=== PATIENT | male | born 2000 | race Caucasian/White ===

== ENCOUNTER 2023-11-09 14:07 | Emergency (ER) | payer BC ==
--- NOTE | 2023-11-09 15:36 | CT ---
EXAMINATION TYPE: CT brain wo con DATE OF EXAM: 11/09/2023 COMPARISON: 07/19/2011 HISTORY: 23-year-old male Dizziness, fogginess x1mo. Lethargic, loss of appetite. No injury. TECHNIQUE: Examination was done in axial plane without intravenous contrast. Coronal and sagittal r econstructions performed. CT DLP: 1122.4 mGycm Automated exposure control for dose reduction was used. FINDINGS: There is no evidence of acute intracranial hemorrhage, acute ischemic changes, mass, mass-effect, or extra-axial fluid collection. There is no effacement of cerebral sulci or basal subarachnoid cister ns. There is no hydrocephalus. There is no midline shift. Schilling-white matter distinction is preserv ed. Incidental megacisterna magna redemonstrated. Paranasal sinuses and mastoid air cells well pneumatized. Orbits and globes are intact. IMPRESSION: No acute intracranial abnormality seen.
--- NOTE | 2023-11-09 15:46 | ED ---
General Adult HPI - General Chief complaint: Dizziness Stated complaint: light headed Time Seen by Provider: 11/09/23 14:19 Source: patient, RN notes reviewed Mode of arrival: ambulatory Limitations: no limitations - History of Present Illness Initial comments: 23-year-old male presents the emergency department with a chief complaint of hazy vision. Patient reports that he has been experiencing dizziness for the last month which she describes foggy and hazy vision. 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 He has been seen by multiple urgent. The emergency department and specialists regarding his symptoms all of which have had unremarkable workups. He reports persistent symptoms. He denies any headache or vision loss, nausea or vomiting, chest pain or shortness of breath. Of note he does report to feel more fatigued recently. - Related Data Allergies Allergy/AdvReac Type Severity Reaction Status Date / Time amoxicillin Allergy Rash/Hives Verified 11/09/23 14:15 Review of Systems ROS Statement: Those systems with pertinent positive or pertinent negative responses have been documented in the HPI. ROS Other: All systems not noted in ROS Statement are negative. Past Medical History Past Medical History: No Reported History History of Any Multi-Drug Resistant Organisms: None Reported Past Surgical History: No Surgical Hx Reported Past Psychological History: No Psychological Hx Reported Smoking Status: Vaper Past Alcohol Use History: Rare Past Drug Use History: Marijuana General Exam - General Exam Comments Initial Comments: General: Alert, in no acute distress Head: atraumatic normocephalic. Eyes PERRL, EOMI intact, mucous membranes moist Respiratory: Lungs clear to auscultation bilaterally Cardiovascular: Rate regular rate and rhythm Abdominal: Soft without guarding or rebound Extremities: Normal inspection with full range of motion and normal capillary refill Neuroogic: alert and oriented 3, CN II-XII intact, able to ambulate with steady gait Skin: warm dry and intact with normal color Limitations: no limitations Course Vital Signs 11/09/23 11/09/23 14:11 14:25 Temperature 97.6 F 98.2 F Pulse Rate 86 80 Respiratory 18 18 Rate Blood Pressure 132/81 146/81 O2 Sat by Pulse 100 100 Oximetry - Reevaluation(s) Reevaluation #1: 11/09/23 14:31 Patient history obtained. Patient requesting to have CT performed. Medical Decision Making - Medical Decision Making Was pt. sent in by a medical professional or institution ([facility], PANEL ASSEMBLER, urgent care, hospital, or [facility]...) When possible be specific @ -[No] Did you speak to anyone other than the patient for history (EMS, parent, family, police, friend...)? What history was obtained from this source @ -[No] Did you review nursing and triage notes (agree or disagree)? Why? @ -[I reviewed and agree with nursing and triage notes] Were old charts reviewed (outside hosp., previous admission, EMS record, old EKG, old radiological studies, urgent care reports/EKG's, [facility] records)? Report findings @ -[No old charts were reviewed] Differential Diagnosis (chest pain, altered mental status, abdominal pain women, abdominal pain men, vaginal bleeding, weakness, fever, dyspnea, syncope, headache, dizziness, GI bleed, back pain, seizure, CVA, palpatations, mental health, musculoskeletal)? @ -[not applicable] EKG interpreted by me (3pts min.). @ -[As above] X-rays interpreted by me (1pt min.). @ -[None done] CT interpreted by me (1pt min.). @ -No intracranial process or brain lesions U/S interpreted by me (1pt. min.). @ -[None done] What testing was considered but not performed or refused? (CT, X-rays, U/S, labs)? Why? @ -[None] What meds were considered but not given or refused? Why? @ -[None] Did you discuss the management of the patient with other professionals (professionals i.e. [facility], PANEL ASSEMBLER, lab, RT, psych nurse, social professionals, head of ict, teacher, ordnance corps officer, residential case manager)? Give summary @ -[No] Was smoking cessation discussed for >3mins.? @ -[No] Was critical care preformed (if so, how long)? @ -[No] Were there social determinants of health that impacted care today? How? (Homelessness, low income, unemployed, alcoholism, drug addiction, transportation, low edu. Level, literacy, decrease access to med. care, longterm, rehab)? @ -[No] Was there de-escalation of care discussed even if they declined (Discuss DNR or withdrawal of care, Hospice)? DNR status @ -[No] What co-morbidities impacted this encounter? (DM, HTN, Smoking, COPD, CAD, Cancer, CVA, ARF, Chemo, Hep., AIDS, mental health diagnosis, sleep apnea, morbid obesity)? @ -[None] Was patient admitted / discharged? Hospital course, mention meds given and route, prescriptions, significant lab abnormalities, going to OR and other pertinent info. @ Discharged. This is a pleasant 23-year-old male who presents the emergency department with a vision changes. Patient had a thorough history and physical exam performed. Physical exam essentially unremarkable. Vital signs are stable. Patient afebrile. There are no focal neuro deficits noted on exam. Patient is able to move all extremities equally. He is able to relate a steady gait. Patient had CT imaging performed which was negative for any intracranial process. I discussed results in detail with the patient verbalized understanding and all questions were addressed. He is agreeable with the plan for discharge home. Recommend close follow-up with PCP in 1-2 days. Case is discussed with Dr. Rodriguez, ED attending who agrees with plan of care Undiagnosed new problem with uncertain prognosis? @ -[No] Drug Therapy requiring intensive monitoring for toxicity (Heparin, Nitro, Insulin, Cardizem)? @ -[No] Were any procedures done? @ -[No] Diagnosis/symptom? @ -Vision Changes Acute, or Chronic, or Acute on Chronic? @ -Acute Uncomplicated (without systemic symptoms) or Complicated (systemic symptoms)? @ -Uncomplicated Side effects of treatment? @ -[No] Exacerbation, Progression, or Severe Exacerbation? @ -[No] Poses a threat to life or bodily function? How? (Chest pain, [place], [place], pneumonia, PE, COPD, DKA, ARF, appy, cholecystitis, CVA, Diverticulitis, Homicidal, S uicidal, threat to staff... and all critical care pts) @ -Low likelihood Disposition Clinical Impression: Vision changes Disposition: HOME SELF-CARE Condition: Stable Instructions (If sedation given, give patient instructions): Dizziness (ED) Additional Instructions: Follow-up with your PCP in 1-2 days Please monitor symptoms closely Please return to the nearest emergency department if sudden vision loss and headache with nausea vomiting develops Is patient prescribed a controlled substance at d/c from ED?: No Referrals: Eusebio Montes De Oca MD [Primary Care Provider] - 1-2 days Time of Disposition: 15:50
[2023-11-09 16:31] VITALS: BP 119/76; PULSE 91; RESP 20; TEMP 98.7
== END 2023-11-09 16:31 | disposition home or self-care (01) ==
LOC: EC 14:07
DX: H53.9 Unspecified visual disturbance (principal); F17.290 Nicotine dependence, other tobacco product, uncomplicated; F12.90 Cannabis use, unspecified, uncomplicated; Z88.0 Allergy status to penicillin
CPT/HCPCS: 70450; 99284

== ENCOUNTER → 2023-12-05 | Outpatient (CLI) | payer BC ==
[2023-12-05 16:06] LABS: HCT 46.3 % (39.6-50.0); HGB 15.4 g/dL (13.0-17.0); MCH 30.4 pg (27.0-32.0); MCHC 33.3 g/dL (32.0-37.0); MCV 91.5 FL (80.0-97.0); Mean Platelet Volume 11.7 FL (9.5-12.2); NRBC Per 100 WBC 0 X 10*3/uL (0.00-0.01); Platelet Count 188 X 10*3/uL (140-440); RBC 5.06 X 10*6/uL (4.40-5.60); RDW 11.9 % (11.5-14.5); WBC 4.43 X 10*3/uL (4.50-10.00)
[2023-12-05 16:38] LABS: ALT 24 U/L (10-49); AST 16 U/L (14-35); Albumin 5.1 g/dL (3.8-4.9); Albumin/Globulin Ratio 2.04 Ratio (1.60-3.17); Alkaline Phosphatase 89 U/L (41-126); BUN/Creat Ratio 11.33 Ratio (12.00-20.00); Blood Urea Nitrogen 10.2 mg/dL (9.0-27.0); Calcium 10.5 mg/dL (8.7-10.3); Chloride 100 mmol/L (96-109); Globulin 2.5 g/dL (1.6-3.3); Glucose 91 mg/dL (70-110); Potassium 4.1 mmol/L (3.5-5.5); Sodium 139 mmol/L (135-145); Total Bilirubin 0.6 mg/dL (0.3-1.2); Total Protein 7.6 g/dL (6.2-8.2)
[2023-12-05 22:05] LABS: Erythrocyte Sedimentation Rate 11 mm/Hr (0-15)
== END | disposition home or self-care (01) ==
LOC: LABWHC1 11:05
PROVIDERS: ATTEND Family Medicine
DX: I10 Essential (primary) hypertension (principal); B89 Unspecified parasitic disease; Z79.899 Other long term (current) drug therapy
CPT/HCPCS: 36415; 80053; 82175; 82306; 82570; 82607; 82746; 83655; 83825; 85027; 85652; 86038; 86618

== ENCOUNTER → 2024-04-26 | Outpatient (CLI) | payer BC ==
--- NOTE | 2024-04-26 10:50 | CT ---
EXAMINATION TYPE: CT facial bones wo con DATE OF EXAM: 04/26/2024 COMPARISON: None HISTORY: 24-year-old male J32.9, Sinusitis CT DLP: 618.1 mGycm Automated exposure control for dose reduction was used. TECHNIQUE: Noncontrast axial views of the paranasal sinuses were obtained. Coronal and sagittal recon structions performed. FINDINGS: PARANASAL SINUSES: Mild mucosal thickening along the floors of the bilateral maxillary sinuses. Additional mild mucosal thickening left sphenoid sinus. Otherwise, the ethmoid and frontal sinuses are well pneumatized There is no air-fluid level. Reactive sen- osteogenesis is not seen. There is no destruction of the osseous sampson of the paranasal sinuses. THE NASAL CAVITY: The osteomeatal complexes are patent. Leftward nasal septal deviation. The imaged brain and orbits are normal in appearance. Punctate 2 mm density in the subcutaneous layer right supraorbital region. Mastoid air cells and middle ear cavities are well pneumatized. Reformatted images confirm above findings. IMPRESSION: 1. Mild chronic maxillary sinus disease and additional mild mucosal thickening in the sphenoid sinus. 2. Slight leftward nasal septal deviation. 3. Punctate 2 mm density within the subcutaneous tissues right supraorbital region. Query some type o f retained foreign body material
== END | disposition home or self-care (01) ==
LOC: RADCTMAIN 10:12
PROVIDERS: ATTEND Family Medicine
DX: J34.89 Other specified disorders of nose and nasal sinuses (principal); J32.9 Chronic sinusitis, unspecified; J34.2 Deviated nasal septum; H05.89 Other disorders of orbit
CPT/HCPCS: 70486